=== PATIENT | female | born 1980 | race Two or more races ===

== ENCOUNTER 2022-02-05 14:49 | Emergency (ER) | payer OTHER ==
[~2022-02-05] VITALS: Ht 154.9 cm; Wt 55.0 kg
[2022-02-05 15:47] LABS: Basophils # (auto) 0 10 ^3/uL (0-0.2); Eosinophils # (auto) 0 10 ^3/uL (0-0.8); Eosinophils % (auto) 0.5 % (0.0-7.0); Hemoglobin 12.8 g/dL (12.2-16.2); Monocytes # (auto) 0.4 10 ^3/uL (0-1.3)
[2022-02-05 16:00] LABS: Basophils % (auto) 0.6 % (0.0-2.0); Hematocrit 39.1 % (36.0-46.0); Lymphocytes # (auto) 1.5 10 ^3/uL (0.4-5.4); Lymphocytes % (auto) 30.3 % (10.0-50.0); Mean Corpuscular Hemoglobin 28.7 pg (28.0-32.0); Mean Corpuscular Hgb Conc. 32.8 g/dL (32.0-36.0); Mean Corpuscular Volume 87.6 fL (80.0-100.0); Monocytes % (auto) 7.8 % (0.0-12.0); Neutrophils % (auto) 60.8 % (37.0-80.0); Nucleated Red Blood Cells % 0.1 %; Red Blood Cells 4.46 10^6/uL (4.0-5.20); Red Cell Distribution Width 14.5 % (11.8-14.3); White Blood Cell 4.9 10^3/uL (4.4-10.8)
[2022-02-05 16:04] LABS: Albumin 3.8 g/dL (3.4-5.0); BUN/Creatinine Ratio 7.4; Calcium 8.2 mg/dL (8.5-10.1); Potassium 3.9 mmol/L (3.5-5.1)
[2022-02-05 16:07] LABS: Bilirubin, Total 0.4 mg/dL (0.2-1.0); Total Protein 7.5 g/dL (6.4-8.2)
[2022-02-05 16:13] LABS: Urine Bacteria FEW /hpf (None Seen); Urine Blood Negative /uL (Negative); Urine Specific Gravity 1.004 (1.001-1.035); Urine WBC 1 /hpf (0 - 5)
[2022-02-05 17:41] VITALS: BP 120/57
[2022-02-05] MEDS ORDERED: IBUP600T27 PO (17:46)
[2022-02-05] MEDS ORDERED: BACDST PO (17:46)
== END 2022-02-05 17:49 | disposition home or self-care (01) ==
LOC: ER 14:49
DX: G44.209 Tension-type headache, unspecified, not intractable (principal); N39.0 Urinary tract infection, site not specified
CPT/HCPCS: 36415; 70450; 80053; 81001; 81025; 85025